=== PATIENT | female | born 1955 | race Asian ===

== ENCOUNTER 2016-10-16 20:09 | Emergency (ER) | payer OTHER ==
[~2016-10-16] VITALS: Ht 162.6 cm; Wt 63.6 kg
[2016-10-16 20:24] VITALS: BP 181/83; PULSE 74; RESP 16; O2SAT 98
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
[2016-10-17 00:47] VITALS: BP 146/75; PULSE 74; RESP 16; O2SAT 100
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
== END 2016-10-17 00:48 | disposition home or self-care (01) ==
LOC: SED 20:09
DX: S39.012A Strain of muscle, fascia and tendon of lower back, initial encounter (principal); V53.6XXA Passenger in pick-up truck or van injured in collision with car, pick-up truck or van in traffic accident, initial encounter; Y93.89 Activity, other specified; Y92.410 Unspecified street and highway as the place of occurrence of the external cause; Y99.8 Other external cause status